=== PATIENT | female | born 1970 | race Caucasian/White ===

== ENCOUNTER 2016-10-15 17:47 | Emergency (ER) | payer MEDICAID ==
[2016-10-15] MEDS ORDERED: KETOROLAC 60 MG/2 ML VIAL IM STA (19:34)
[2016-10-15] MEDS ORDERED: ONDANSETRON ODT 4 MG TABLET TL STA (19:34)
[2016-10-15] MEDS ORDERED: KETOROLAC 60 MG/2 ML VIAL ONE (19:36)
[2016-10-15] MEDS ORDERED: ONDANSETRON ODT 4 MG TABLET ONE (19:36)
== END 2016-10-15 21:30 | disposition home or self-care (01) ==
DX: N20.0 Calculus of kidney (principal); Z87.442 Personal history of urinary calculi; E11.65 Type 2 diabetes mellitus with hyperglycemia; K57.30 Diverticulosis of large intestine without perforation or abscess without bleeding
CPT/HCPCS: 36415; 74176; 80048; 81001; 81003; 81025; 96372; 99283; 99284; Q0162

== ENCOUNTER 2016-12-05 11:23 | Emergency (ER) | payer MEDICAID ==
[2016-12-05] MEDS ORDERED: LIDOCAINE TOPICAL 4% 50 ML BOTTLE MM STA (12:13)
[2016-12-05] MEDS ORDERED: LIDOCAINE TOPICAL 4% 50 ML BOTTLE MM ONE (12:21)
--- NOTE | 2016-12-05 12:41 | ED Physician Documentation ---
History of Present Illness - Stated complaint Stated Complaint: LT EAR PAIN - Chief complaint Chief Complaint: Heent - Additonal information Additional information: hx from pt denies preg L ear pain some recent congestion Review of Systems Constitutional: denies: Fever Ears: reports: Ear pain Nose: reports: Congestion : denies: Now EGA PD PAST MEDICAL HISTORY - Past Medical History : Kidney stones - Past Surgical History Past Surgical History: Yes - Present Medications Home Medications: Ambulatory Orders Medication Instructions Recorded Confirmed Fluoxetine HCl 10 mg PO DAILY 10/15/16 12/05/16 metFORMIN [Glucophage] 500 mg PO BIDWM #60 tablet 10/15/16 12/05/16 Neomycin/Polymyx/Hc Otic Drops 4 drops OT QID #1 bottle 12/05/16 [Cortisporin Ear Susp] Oxymetazoline HCl [Afrin] 2 spray NS BID PRN #1 bottle 12/05/16 - Allergies Allergies/Adverse Reactions: Allergies Allergy/AdvReac Type Severity Reaction Status Date / Time aspirin Allergy Unknown Verified 12/05/16 11:27 - Social History Does the pt smoke?: No Smoking Status: Never smoker Does the pt drink ETOH?: Yes PD ED PE NORMAL - Vitals Vital signs reviewed: Yes - HEENT HEENT: Other (L AOE) - Cardiac Cardiac: RRR - Respiratory Respiratory: No respiratory distress, Clear bilaterally Results - Vitals Vitals: Vital Signs - 24 hr 12/05/16 12/05/16 11:25 11:36 Temperature 36.0 C L 36.5 C Heart Rate 74 85 Respiratory 18 18 Rate Blood Pressure 125/85 H O2 Saturation 98 98 Oxygen O2 Source Room air Departure - Departure Disposition: Home, Self Care Clinical Impression: Otitis externa Qualifiers: Otitis externa type: unspecified type Laterality: left Chronicity: acute Qualified Code(s): H60.502 - Unspecified acute noninfective otitis externa, left ear Condition: Good Instructions: ED Otitis Externa Prescriptions: Oxymetazoline HCl [Afrin] 2 spray NS BID PRN #1 bottle PRN Reason: nasal sinus ear congestion Neomycin/Polymyx/Hc Otic Drops [Cortisporin Ear Susp] 4 drops OT QID #1 bottle Comments: Motrin and tylenol as needed for the pain
[2016-12-05 12:56] VITALS: BP 141/88
== END 2016-12-05 12:53 | disposition home or self-care (01) ==
LOC: ED 11:23
DX: H60.502 Unspecified acute noninfective otitis externa, left ear (principal)
CPT/HCPCS: 99283